=== PATIENT | male | born 1955 | race Caucasian/White ===

== ENCOUNTER 2018-12-26 17:41 | Emergency (ER) | payer OTHER ==
[~2018-12-26] VITALS: Ht 177.8 cm; Wt 97.5 kg
[2018-12-26 17:43] VITALS: BP 110/69
== END 2018-12-26 19:43 | disposition home or self-care (01) ==
LOC: ED 19:37
DX: N50.82 Scrotal pain (principal); E11.9 Type 2 diabetes mellitus without complications
CPT/HCPCS: 76870; 81003; 99284

== ENCOUNTER 2019-05-11 20:27 | Emergency (ER) | payer OTHER ==
[~2019-05-11] VITALS: Ht 177.8 cm; Wt 100.9 kg
[~2019-05-11 20:27] MED LIST: GLIP5TAB10 PO; LISI-167 PO; METF500T17 PO
[2019-05-11 20:33] VITALS: BP 136/88
[2019-05-11] MEDS ORDERED: KETOROLAC 30 MG/1 ML ONE (21:06)
[2019-05-11] MEDS ORDERED: METHOCARBAMOL 750 MG TABLET ONE (21:08)
--- NOTE | 2019-05-11 21:39 | NUR ---
PT BACK FROM XRAY. MEDS ADMIN PER AUG.
[2019-05-11] MEDS ORDERED: KETOROLAC 30 MG/1 ML IM ONE (22:00)
[2019-05-11] MEDS ORDERED: METHOCARBAMOL 750 MG TABLET PO ONE (22:00)
== END 2019-05-11 22:40 | disposition home or self-care (01) ==
LOC: ED 22:30
DX: G89.11 Acute pain due to trauma (principal); M54.6 Pain in thoracic spine; M25.562 Pain in left knee; I10 Essential (primary) hypertension; E11.9 Type 2 diabetes mellitus without complications; W01.0XXA Fall on same level from slipping, tripping and stumbling without subsequent striking against object, initial encounter; Y93.89 Activity, other specified; Y92.89 Other specified places as the place of occurrence of the external cause; Y99.8 Other external cause status
CPT/HCPCS: 29505; 72072; 73564; 96372; 99283; J1885

== ENCOUNTER 2019-06-09 04:25 | Emergency (ER) | payer OTHER ==
[~2019-06-09] VITALS: Ht 177.8 cm; Wt 101.7 kg
[2019-06-09 05:08] LABS: RAPID INFLUENZA A Negative (Negative); RAPID INFLUENZA B Negative (Negative)
--- NOTE | 2019-06-09 05:08 | NUR ---
REPORT RECEIVED, CARE ASSUMED.
--- NOTE | 2019-06-09 05:19 | NUR ---
PT LAYING ON GURNEY. NO ACUTE DISTRESS NOTED. PT AWARE OF WAITING FOR TEST RESULTS. PT PROVIDED WITH WARM BLANKET. NO OTHER NEEDS EXPRESSED AT THIS TIME.
[2019-06-09 05:20] LABS: ALANINE AMINOTRANSFERASE 28 U/L (12-78); ALBUMIN 3.5 g/dL (3.4-5.0); ANION GAP 10 mmol/L (5-15); CALCIUM 8.2 mg/dL (8.5-10.1); CHLORIDE 103 mmol/L (98-107); CREATININE 1.53 mg/dL (0.7-1.3)
[2019-06-09 05:22] LABS: ALKALINE PHOSPHATASE 80 U/L (45-117); BILIRUBIN,TOTAL 0.8 mg/dL (0.2-1.0); TOTAL PROTEIN 6.8 g/dL (6.4-8.2)
--- NOTE | 2019-06-09 05:46 | NUR ---
PT AWARE OF WAITING FOR TEST RESULTS. NO NEEDS EXPRESSED AT THIS TIME. NO ACUTE DISTRESS NOTED.
[2019-06-09 05:47] VITALS: BP 144/71
[2019-06-09 05:59] LABS: MEAN CORPUSCULAR HEMOGLOBIN 29.3 pg (27.5-34.5); MEAN CORPUSCULAR HGB CONC 34.3 g/dL (33.2-36.2); MEAN CORPUSCULAR VOLUME 85.7 fL (81-97); PLATELET COUNT 74 x10^3/uL (130-400); RED BLOOD COUNT 5.08 x10^6/uL (4.38-5.82); RED CELL DISTRIBUTION WIDTH 14.9 % (9.4-14.8)
[2019-06-09 06:02] LABS: BASOPHILS # (AUTO) 0.01 x10^3/uL (0-0.1); BASOPHILS % (AUTO) 0 % (0-1); EOSINOPHILS # (AUTO) 0.09 x10^3/uL (0-0.4); EOSINOPHILS % (AUTO) 2 % (1-7); LYMPHOCYTES # (AUTO) 0.53 x10^3/uL (1-3.4); LYMPHOCYTES % (AUTO) 13 % (22-44); MD SCAN; MONOCYTES # (AUTO) 0.57 x10^3/uL (0.2-0.8); MONOCYTES % (AUTO) 14 % (2-9); NEUTROPHILS # (AUTO) 2.82 x10^3/uL (1.8-6.8); NEUTROPHILS % (AUTO) 70 % (42-75)
--- NOTE | 2019-06-09 06:41 | NUR ---
PT DRESSED AND READY TO GO. NO IV TO DC. REVIEWED DC INSTRUCTIONS WITH PT, UNDERSTANDING VERBALIZED. PT LEFT AMB, GAIT STEADY.
== END 2019-06-09 06:43 | disposition home or self-care (01) ==
LOC: ED 05:53
DX: J06.9 Acute upper respiratory infection, unspecified (principal); E11.65 Type 2 diabetes mellitus with hyperglycemia; N28.9 Disorder of kidney and ureter, unspecified; I10 Essential (primary) hypertension
CPT/HCPCS: 36415; 71046; 80053; 85025; 87400; 99284